=== PATIENT | female | born 1995 ===

== ENCOUNTER 2021-01-29 07:56 | Outpatient (CLI) | payer OTHER | END 2021-01-29 08:56 | disposition home or self-care (01) | LOC: PRENATAL 07:56 | PROVIDERS: ATTEND Obstetrics & Gynecology Maternal & Fetal Medicine | DX: O35.0XX1 Maternal care for (suspected) central nervous system malformation in fetus, fetus 1 (principal); O35.3XX1 Maternal care for (suspected) damage to fetus from viral disease in mother, fetus 1; O98.512 Other viral diseases complicating pregnancy, second trimester; O99.891 Other specified diseases and conditions complicating pregnancy; Z36.89 Encounter for other specified antenatal screening; Z3A.22 22 weeks gestation of pregnancy ==

== ENCOUNTER 2021-04-08 08:58 | Outpatient (CLI) | payer OTHER | END 2021-04-08 10:00 | disposition home or self-care (01) | LOC: PRENATAL 08:58 | PROVIDERS: ATTEND Obstetrics & Gynecology Maternal & Fetal Medicine | DX: O26.843 Uterine size-date discrepancy, third trimester (principal); O36.8131 Decreased fetal movements, third trimester, fetus 1; O35.0XX1 Maternal care for (suspected) central nervous system malformation in fetus, fetus 1; O99.891 Other specified diseases and conditions complicating pregnancy; Z36.89 Encounter for other specified antenatal screening; Z3A.32 32 weeks gestation of pregnancy ==

== ENCOUNTER 2024-10-07 10:57 | Outpatient (CLI) | payer OTHER | END 2024-10-07 10:59 | disposition home or self-care (01) | LOC: PRENATAL 10:57 | PROVIDERS: ATTEND Obstetrics & Gynecology Maternal & Fetal Medicine | DX: O44.00 Complete placenta previa NOS or without hemorrhage, unspecified trimester (principal); Z3A.19 19 weeks gestation of pregnancy ==

== ENCOUNTER 2024-12-02 12:05 | Outpatient (CLI) | payer OTHER | END 2024-12-02 12:06 | disposition home or self-care (01) | LOC: PRENATAL 12:05 | PROVIDERS: ATTEND Obstetrics & Gynecology Maternal & Fetal Medicine | DX: O26.849 Uterine size-date discrepancy, unspecified trimester (principal); O36.8199 Decreased fetal movements, unspecified trimester, other fetus; O44.00 Complete placenta previa NOS or without hemorrhage, unspecified trimester; Z3A.28 28 weeks gestation of pregnancy ==

== ENCOUNTER → 2025-01-13 12:57 | Outpatient (CLI) | payer OTHER | END | disposition home or self-care (01) | LOC: PRENATAL 12:57 | PROVIDERS: ATTEND Obstetrics & Gynecology Maternal & Fetal Medicine | DX: O26.849 Uterine size-date discrepancy, unspecified trimester (principal); O36.8199 Decreased fetal movements, unspecified trimester, other fetus; O44.00 Complete placenta previa NOS or without hemorrhage, unspecified trimester; Z3A.32 32 weeks gestation of pregnancy ==